=== PATIENT | female | born 1940 | race Caucasian/White ===

== ENCOUNTER 2017-08-18 07:02 | Day surgery (SDC) | payer MEDICARE, OTHER ==
[~2017-08-18 07:02] MED LIST: Acetaminophen/oxyCODONE 325-5 MG Tab PO PRN; Bisacodyl 5 MG Tab PO PRN; EPINEPHrine 1 MG/ML SDV ONE; Ketorolac 15 MG/ML SDV IVPUSH PRN; Lactated Ringers 1,000 ML IV SCH; Lidocaine 1%/Sod Bicarbonate in NS 8.4% 1 ML Syringe IDERM PRN; Magnesium Hydroxide 400 MG/5 ML Susp 30 ML Cup PO PRN; Morphine 4 MG/ML Syringe IVPUSH PRN; Naloxone 0.4 MG/ML SDV IVPUSH PRN; Ropivacaine 0.5% 5 MG/ML 30 ML SDV ONE; Sennosides 8.6 MG Tab PO PRN; Sodium Chloride 0.9% 10 ML Syringe FLUSH PRN
[2017-08-18] MEDS ORDERED: Acetaminophen 1,000 MG/100 ML Infusion Bottle IV SCH (07:05)
[2017-08-18] MEDS ORDERED: Iodine/Sodium Iodide 2% Tincture 30 ML Bottle ONE (07:06)
[2017-08-18] MEDS ORDERED: oxyCODONE ER 10 MG TAB.ER PO SCH (07:06)
[2017-08-18] MEDS ORDERED: ceFAZolin 1 GM Vial ONE ×2 (07:06→07:37)
[2017-08-18] MEDS ORDERED: Bupivacaine 0.75%/D5W 2 ML Amp ONE (07:25)
[2017-08-18] MEDS ORDERED: Morphine PF 10 MG/10 ML SDV ONE (07:25)
[2017-08-18] MEDS ORDERED: Lidocaine 1% 12 ML ONE (07:37)
[2017-08-18] MEDS ORDERED: fentaNYL 100 MCG/2 ML SDV ONE (07:37)
[2017-08-18] MEDS ORDERED: Ondansetron 4 MG/2 ML SDV ONE (07:37)
[2017-08-18] MEDS ORDERED: Lactated Ringers 1,000 ML ONE (07:37)
[2017-08-18] MEDS ORDERED: Midazolam 1 MG/ML 2 ML SDV ONE (07:37)
[2017-08-18] MEDS ORDERED: Ketamine 500 mg/10 ML MDV ONE (07:37)
[2017-08-18] MEDS ORDERED: Propofol 200 MG/20 ML SDV ONE (07:37)
[2017-08-18] MEDS ORDERED: Phenylephrine 1% 10 MG/ML SDV ONE (07:42)
--- NOTE | 2017-08-18 08:00 | PCM.PREANE ---
Preanesthetic Assessment - Anesthesia/Transfusion/Family Hx Anesthesia History: Prior Anesthesia Without Reaction Family History of Anesthesia Reaction: No Transfusion History: No Prior Transfusion(s) Intubation History: Unknown - Review of Systems General: No Symptoms, Fatigue Pulmonary: No Symptoms Cardiovascular: No Symptoms (HTN/questionable silent LA noted per patinet), Lightheadedness (occasionally) Gastrointestinal: No Symptoms (gerd), Diarrhea (IBS) Neurological: No Symptoms Other: Reports: None, Diabetes (BS @ [id number]) - Physical Assessment NPO Status Date: 08/17/17 NPO Status Time: 22:30 Pulse: 79 O2 Sat by Pulse Oximetry: 96 Respiratory Rate: 16 Blood Pressure: 142/63 Temperature: 36.6 C Vital Signs: Last Vital Signs Temp 36.6 C 08/18/17 07:10 Pulse 79 08/18/17 07:10 Resp 16 08/18/17 07:10 BP 142/63 H 08/18/17 07:10 Pulse Ox 96 08/18/17 07:10 Height: 1.52 m Weight: 68.946 kg ASA Class: 2 Mental Status: Alert & Oriented x3 Airway Class: Mallampati = 2 Dentition: Reports: Normal Dentition, Caries Thyro-Mental Finger Breadths: 3 Mouth Opening Finger Breadths: 3 ROM/Head Extension: Full Lungs: Clear to Auscultation, Normal Respiratory Effort Cardiovascular: Regular Rate, Regular Rhythm, No Murmurs - Lab Values: Laboratory Last Values POC Glucose 145 mg/dL (83-110) H 08/18/17 07:21 MRSA (PCR) Negative 08/06/17 12:38 Platelets= 297,000 hgb=13.7 hct=43.1 All other labs reviewed and noted and within acceptable ranges to proceed with scheduled procedure. - Imaging/EKG Impressions: EKG: NSR, inferior Q waves, nonspecific Twave flattening in lead V2. CXR: negative - Allergies Allergies/Adverse Reactions: Allergies Allergy/AdvReac Type Severity Reaction Status Date / Time No Known Allergies Allergy Verified 08/15/17 15:11 - Anesthesia Plan Pre-Op Medication Ordered: None - Acknowledgements Anesthesia Type Planned: Spinal (with right femoral nerve block within the adductor canal under US guidance requested by Dr. Yen.) Pt an Appropriate Candidate for the Planned Anesthesia: Yes Alternatives and Risks of Anesthesia Discussed w Pt/Guardian: Yes Pt/Guardian Understands and Agrees with Anesthesia Plan: Yes PreAnesthesia Questionnaire HEENT History: Reports: Cataract, Other (See Below) Other HEENT History: globus hystericus, wears glasses Cardiovascular History: Reports: High Cholesterol, Hypertension Respiratory History: Reports: None Gastrointestinal History: Reports: GERD, Irritable Bowel Syndrome Genitourinary History: Reports: Urinary Incontinence, Other (See Below) Other Genitourinary History: frequency [employer] MANAGER History: Reports: None Musculoskeletal History: Reports: Other (See Below) Other Musculoskeletal History: leg dysethesia, left joint/knee pain, bunion, capsulitis, RLS Neurological History: Reports: Other (See Below) Other Neuro History: lumbar disc disease Psychiatric History: Reports: Other (See Below) Other Psychiatric History: insomnia, hypersomnia Endocrine/Metabolic History: Reports: Diabetes, Type II Hematologic History: Reports: None Immunologic History: Reports: None Oncologic (Cancer) History: Reports: None Dermatologic History: Reports: Other (See Below) Other Dermatologic History: herpes zoster, actinic keratosis - Past Surgical History Head Surgeries/Procedures: Reports: None HEENT Surgical History: Reports: Cataract Surgery Cardiovascular Surgical History: Reports: None Respiratory Surgical History: Reports: None GI Surgical History: Reports: Colonoscopy, EGD Female Surgical History: Reports: D&C Male Surgical History: Reports: None Endocrine Surgical History: Reports: None Neurological Surgical History: Reports: None Musculoskeletal Surgical History: Reports: None Oncologic Surgical History: Reports: None - SUBSTANCE USE Smoking Status *Q: Never Smoker Recreational Drug Use History: No - HOME MEDS Home Medications: Home Meds Omeprazole 20 mg PO DAILY 06/08/14 [History] Potassium Chloride [Klor-Con 10] 10 meq PO BID 06/08/14 [History] Simvastatin 20 mg PO DAILY 06/08/14 [History] Triamterene/Hydrochlorothiazid [Triamterene-HCTZ 37.5-25 MG] 1 tab PO DAILY [History] rOPINIRole HCl [Requip] 1 mg PO BID 06/08/14 [History] Acetaminophen [Tylenol Extra Strength] 500 mg PO QID PRN 08/15/17 [History] Calcium Carb/D3/Magnesium/Zinc [Jasvir Mag Zinc + D Tablet] 2 tab PO DAILY [History] Cholecalciferol (Vitamin D3) [Vitamin D3] 2,000 units PO DAILY 08/15/17 [History ] Denosumab [Prolia] 1 injection SQ ASDIRECTED 08/15/17 [History] Eluxadoline [Viberzi] 1 - 2 tab PO DAILY 08/15/17 [History] Glimepiride 2 mg PO DAILY 08/15/17 [History] LORazepam 0.5 mg PO DAILY 08/15/17 [History] SitaGLIPtin [Januvia] 100 mg PO DAILY 08/15/17 [History] rOPINIRole [Requip] 2 mg PO BEDTIME 08/15/17 [History] - CURRENT (IN HOUSE) MEDS Current Meds: Current Medications Acetaminophen (Ofirmev) 1,000 mg IV ASDIRECTED [facility] Stop: 08/19/17 07:06 Aspirin (Ecotrin) 325 mg PO BID [facility] Bisacodyl (Dulcolax) 5 mg PO DAILY PRN PRN Reason: Constipation Morphine Sulfate 8 mg/Epinephrine HCl 0.3 mg/Cefuroxime Sodium 750 mg/Ketorolac Tromethamine 30 mg/Sodium Chloride 27.9 ml 0 mg .XX ONETIME ONE Stop: 08/18/17 09:01 Docusate Sodium (Colace) 100 mg PO BID [facility] Famotidine (Pepcid) 20 mg PO Q12H [facility] Lactated Ringer's (Ringers, Lactated) 1,000 mls @ 125 mls/hr IV ASDIRECTED [facility] Last Admin: 08/18/17 07:25 Dose: 125 mls/hr Cefazolin Sodium/Dextrose 2 gm (/ Premix) 50 mls @ 100 mls/hr IV Q8H [facility] Stop: 08/18/17 23:29 Ketorolac Tromethamine (Toradol) 15 mg IVPUSH Q6H PRN PRN Reason: Pain Lidocaine/Sodium Bicarbonate (Buffered Lidocaine 1% In Ns 8.4%) 0.25 ml IDERM ONETIME PRN PRN Reason: Prior to IV Start Stop: 08/18/17 18:00 Last Admin: 08/18/17 07:25 Dose: 0.25 ml Magnesium Hydroxide (Milk Of Magnesia) 30 ml PO BID PRN PRN Reason: Constipation Morphine Sulfate (Morphine) 2 mg IVPUSH Q2H PRN PRN Reason: Breakthrough Pain Naloxone HCl (Narcan) 0.1 mg IVPUSH Q5M PRN PRN Reason: Oversedation Ondansetron HCl (Zofran) 4 mg IVPUSH Q6H PRN PRN Reason: Nausea/Vomiting Oxycodone HCl (Oxycontin) 10 mg PO ONETIME [facility] Oxycodone/Acetaminophen (Percocet 325-5 Mg) 1 - 2 tab PO Q4H PRN PRN Reason: Pain Pregabalin (Lyrica) 50 mg PO DAILY [facility] Senna (Senna) 8.6 mg PO BID PRN PRN Reason: Constipation Sodium Chloride (Saline Flush) 10 ml FLUSH ASDIRECTED PRN PRN Reason: Keep Vein Open Discontinued Medications Bupivacaine HCl (Marcaine 0.25%) Confirm Administered Dose 30 ml .ROUTE .STK- MED ONE Stop: 08/18/17 07:07 Bupivacaine HCl/Dextrose (Marcaine 0.75% Spinal) Confirm Administered Dose 2 ml .ROUTE .STK-MED ONE Stop: 08/18/17 07:26 Cefazolin Sodium (Ancef) Confirm Administered Dose 2 gm .ROUTE .STK-MED ONE Stop: 08/18/17 07:07 Cefazolin Sodium (Ancef) Confirm Administered Dose 2 gm .ROUTE .STK-MED ONE Stop: 08/18/17 07:38 Epinephrine HCl (Adrenalin) Confirm Administered Dose 1 mg .ROUTE .STK-MED ONE Stop: 08/18/17 06:40 Fentanyl (Sublimaze) Confirm Administered Dose 100 mcg .ROUTE .STK-MED ONE Stop: 08/18/17 07:38 Lidocaine HCl (Xylocaine-Mpf 1%) Confirm Administered Dose 12 mls @ as directed .ROUTE .STK-MED ONE Stop: 08/18/17 07:38 Lactated Ringer's (Ringers, Lactated) Confirm Administered Dose 1,000 mls @ as directed .ROUTE .STK-MED ONE Stop: 08/18/17 07:38 Iodine (Iodine 2% Mild Tincture) Confirm Administered Dose 30 ml .ROUTE .STK- MED ONE Stop: 08/18/17 07:07 Ketamine HCl (Ketalar) Confirm Administered Dose 500 mg .ROUTE .STK-MED ONE Stop: 08/18/17 07:38 Midazolam HCl (Versed 1 Mg/Ml) Confirm Administered Dose 2 mg .ROUTE .STK-MED ONE Stop: 08/18/17 07:38 Morphine Sulfate (Duramorph Pf) Confirm Administered Dose 10 mg .ROUTE .STK-MED ONE Stop: 08/18/17 07:26 Ondansetron HCl (Zofran) Confirm Administered Dose 4 mg .ROUTE .STK-MED ONE Stop: 08/18/17 07:38 Phenylephrine HCl (Stewart-Synephrine) Confirm Administered Dose 10 mg .ROUTE .STK- MED ONE Stop: 08/18/17 07:43 Propofol (Diprivan 20 Ml) Confirm Administered Dose 400 mg .ROUTE .STK-MED ONE Stop: 08/18/17 07:38 Ropivacaine (Naropin 0.5%) Confirm Administered Dose 30 ml .ROUTE .STK-MED ONE Stop: 08/18/17 06:40 Tranexamic Acid (Cyklokapron) Confirm Administered Dose 1,000 mg .ROUTE .STK- MED ONE Stop: 08/18/17 07:07 Vancomycin HCl (Vancomycin) Confirm Administered Dose 1 gm .ROUTE .STK-MED ONE Stop: 08/18/17 07:07
[2017-08-18] MEDS: Pregabalin 25 MG Cap PO SCH ×2 (08:07→15:23)
[2017-08-18] MEDS ORDERED: diphenhydrAMINE 50 MG/ML SDV IVPUSH PRN (09:59)
[2017-08-18] MEDS ORDERED: fentaNYL 100 MCG/2 ML SDV IVPUSH PRN (09:59)
[2017-08-18] MEDS ORDERED: Ondansetron 4 MG/2 ML SDV IVPUSH PRN (09:59)
[2017-08-18] MEDS ORDERED: ePHEDrine 50 MG/ML SDV IVPUSH PRN (09:59)
[2017-08-18] MEDS ORDERED: Phenylephrine 1 MG in Sodium Chloride 0.9% 10 ML IV SCH (10:00)
[2017-08-18] MEDS ORDERED: Lidocaine 1% 2 ML ONE (10:00)
[2017-08-18] MEDS: Bupivacaine 0.25% 30 ML SDV ONE ×2 (10:52→10:58)
[2017-08-18] MEDS: Morphine 8 MG, EPINEPHrine 0.3 MG, Cefuroxime 750 MG, Ketorolac 30 MG, Sodium Chloride ... ONE ×15 (10:52→15:21)
[2017-08-18] MEDS: Vancomycin 1 GM SDV ONE ×2 (10:53→11:01)
--- NOTE | 2017-08-18 11:44 | PCM.POSTAN ---
POST ANESTHESIA ASSESSMENT - MENTAL STATUS Mental Status: Alert - VITAL SIGNS Pulse Rate: 81 SaO2: 94 (on 2lpm nasal cannula) Resp Rate: 24 Blood Pressure: 118/60 Temperature: 36.7 C - RESPIRATORY Respiratory Status: Respiratory Rate WNL, Airway Patent, O2 Saturation Stable - CARDIOVASCULAR CV Status: Pulse Rate WNL, Blood Pressure Stable - GASTROINTESTINAL GI Status: No Symptoms - POST OP HYDRATION Hydration Status: Adequate & Stable
--- NOTE | 2017-08-18 12:15 | PCM.SN ---
- Free Text/Narrative Note: Right selective femoral nerve block at the adductor canal for post-procedure pain control under US guidance requested by Dr. Yen. Time Out: 1149 Start: 1150 End: 1202 Chart reviewed. Consent signed. Questions answered. Appropriate monitors applied. Time out performed. Right mid-shaft femur identified with ultrasound, scanning medially of femur, the femoral artery in the adductor canal visualized , and the femoral nerve located laterally to the artery. The skin was prepped lateral to the ultrasound probe with chlorahexadine times two. The 21ga 4 insulated block needle was inserted under direct ultrasound guidance into the adductor canal. 20mL of 0.5% ropivacaine with 1:200,000 epinephrine was injected circumferentially around the nerve with intermittent negative aspiration noted. Patient tolerated the procedure well. Aseptic technique noted along with sterile gloves, mask, and sterile probe cover. See pictures on progress note and vital signs on nurses notes. Block completed in PACU. Lilian Sánchez CRNA
--- NOTE | 2017-08-18 13:04 | CR ---
Right knee: AP and lateral views of the right knee were obtained. Comparison: No prior knee exam. Knee prosthesis is seen. Components are aligned. Soft tissue is noted. Underlying bony structures are intact. Impression: 1. Satisfactory radiographic appearance of recently placed right knee prosthesis. Diagnostic code #2
[2017-08-18] MEDS: Ondansetron 4 MG/2 ML SDV IVPUSH PRN (13:22)
[2017-08-18] MEDS ORDERED: Denosumab 60 MG/1 ML Syringe SCH (13:30)
[2017-08-18] MEDS ORDERED: Scopolamine 1.5 MG Transdermal Patch TRDERM PRN (14:03)
[2017-08-18] MEDS: ceFAZolin 2 GM in Premix Bag 1 BAG IV SCH (14:51)
[2017-08-18] MEDS: rOPINIRole 1 MG Tab PO SCH (14:52)
--- NOTE | 2017-08-18 16:52 | PCM.OPNOTE ---
- General Post-Op/Procedure Note Date of Surgery/Procedure: 08/18/17 Operative Procedure(s): right total knee arthroplasty Pre Op Diagnosis: right knee osteoarthosis Post-Op Diagnosis: Same Anesthesia Technique: Local, MAC, Spinal Primary Surgeon: Deandre Yen Anesthesia Provider: Lilian Sánchez Meter Installer And Remover: Ayala Sorto Meter Installer And Remover: Kae Travis EBL in mLs: 5 Complications: None Condition: Good Free Text/Narrative:: Intake & Output 08/18/17 08/18/17 08/18/17 06:59 14:59 22:59 Intake Total 150 Output Total 500 Balance -350 size 4 29x9 9mm
[2017-08-18] MEDS ORDERED: Metoclopramide 10 MG/2 ML SDV IVPUSH PRN (17:27)
[2017-08-18] MEDS ORDERED: rOPINIRole 1 MG Tab PO SCH (21:00)
[2017-08-18] MEDS ORDERED: Famotidine 20 MG Tab PO SCH (21:00)
[2017-08-18] MEDS: Famotidine 20 MG Tab PO SCH (21:17)
[2017-08-18] MEDS: Docusate Sodium 100 MG Cap PO SCH (21:18)
[2017-08-18] MEDS: Potassium Chloride 10 MEQ Tab.ER PO SCH (21:18)
[2017-08-19] MEDS: ceFAZolin 2 GM in Premix Bag 1 BAG IV SCH ×2 (00:11→06:41)
[2017-08-19] MEDS: Acetaminophen/oxyCODONE 325-5 MG Tab PO PRN ×3 (00:12→11:21)
[2017-08-19] MEDS: rOPINIRole 1 MG Tab PO SCH ×2 (06:13→15:06)
--- NOTE | 2017-08-19 06:19 | PCM.CONS ---
H&P History of Present Illness - General Date of Service: 08/19/17 Admit Problem/Dx: Admission Diagnosis/Problem Admission Diagnosis/Problem Osteoarthritis of knee Source of Information: Patient, Old Records, Provider, RN, RN Notes Reviewed History Limitations: Reports: No Limitations - History of Present Illness Initial Comments - Free Text/Narative: Malena Khalil is a 77 yo [address] patient of Dr. Yen who is post-operative day 1 of right TKA. Hospital medicine was consulted for post-operative medical care. At this time she is resting comfortably in bed. Pain is controlled. She denies any chest pain, shortness of breath, palpitations, or vomiting. She does report some nausea with walking long distances. She carries a history of: HLD, HTN, GERD, IBS, urinay incontinence, RLS, insomnia, Type II DM, lumbar disk disease. She was never a smoker. She is a full code. Her primary care provider is Dr. Vincent Saldivar in [place]. Right Knee Pain Score (Numeric/FACES): 2 - Related Data Allergies/Adverse Reactions: Allergies Allergy/AdvReac Type Severity Reaction Status Date / Time No Known Allergies Allergy Verified 08/15/17 15:11 Home Medications: Home Meds Omeprazole 20 mg PO DAILY 06/08/14 [History] Potassium Chloride [Klor-Con 10] 10 meq PO BID 06/08/14 [History] Simvastatin 20 mg PO DAILY 06/08/14 [History] Triamterene/Hydrochlorothiazid [Triamterene-HCTZ 37.5-25 MG] 1 tab PO DAILY [History] rOPINIRole HCl [Requip] 1 mg PO BID 06/08/14 [History] Acetaminophen [Tylenol Extra Strength] 500 mg PO QID PRN 08/15/17 [History] Calcium Carb/D3/Magnesium/Zinc [Jasvir Mag Zinc + D Tablet] 2 tab PO DAILY [History] Cholecalciferol (Vitamin D3) [Vitamin D3] 2,000 units PO DAILY 08/15/17 [History ] Denosumab [Prolia] 1 injection SQ ASDIRECTED 08/15/17 [History] Eluxadoline [Viberzi] 1 - 2 tab PO DAILY 08/15/17 [History] Glimepiride 2 mg PO DAILY 08/15/17 [History] LORazepam 0.5 mg PO DAILY 08/15/17 [History] SitaGLIPtin [Januvia] 100 mg PO DAILY 08/15/17 [History] rOPINIRole [Requip] 2 mg PO BEDTIME 08/15/17 [History] Past Medical History HEENT History: Reports: Cataract, Other (See Below) Other HEENT History: globus hystericus, wears glasses Cardiovascular History: Reports: High Cholesterol, Hypertension Respiratory History: Reports: None Gastrointestinal History: Reports: GERD, Irritable Bowel Syndrome Genitourinary History: Reports: Urinary Incontinence, Other (See Below) Other Genitourinary History: frequency [employer] 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 History: Reports: None Musculoskeletal History: Reports: Other (See Below) Other Musculoskeletal History: leg dysethesia, left joint/knee pain, bunion, capsulitis, RLS Neurological History: Reports: Other (See Below) Other Neuro History: lumbar disc disease Psychiatric History: Reports: Other (See Below) Other Psychiatric History: insomnia, hypersomnia Endocrine/Metabolic History: Reports: Diabetes, Type II Hematologic History: Reports: None Immunologic History: Reports: None Oncologic (Cancer) History: Reports: None Dermatologic History: Reports: Other (See Below) Other Dermatologic History: herpes zoster, actinic keratosis - Past Surgical History Head Surgeries/Procedures: Reports: None HEENT Surgical History: Reports: Cataract Surgery Cardiovascular Surgical History: Reports: None Respiratory Surgical History: Reports: None GI Surgical History: Reports: Colonoscopy, EGD Female Surgical History: Reports: D&C Endocrine Surgical History: Reports: None Neurological Surgical History: Reports: None Musculoskeletal Surgical History: Reports: None Oncologic Surgical History: Reports: None Social & Family History - Tobacco Use Smoking Status *Q: Never Smoker - Caffeine Use Caffeine Use: Reports: Coffee, Soda - Recreational Drug Use Recreational Drug Use: No Drug Use in Last 12 Months: No H&P Review of Systems - Review of Systems: Review Of Systems: See Below General: Reports: No Symptoms HEENT: Reports: No Symptoms Pulmonary: Reports: No Symptoms Cardiovascular: Reports: No Symptoms Gastrointestinal: Reports: No Symptoms. Denies: Abdominal Pain, Constipation, Diarrhea, Nausea, Vomiting Genitourinary: Reports: No Symptoms Musculoskeletal: Reports: Leg Pain, Joint Pain Skin: Reports: No Symptoms Psychiatric: Reports: No Symptoms Neurological: Reports: No Symptoms Hematologic/Lymphatic: Reports: No Symptoms Immunologic: Reports: No Symptoms Exam - Exam Exam: See Below - Vital Signs Vital Signs: Last Vital Signs Temp 98.6 F 08/19/17 04:47 Pulse 88 08/19/17 00:14 Resp 14 08/19/17 04:47 BP 127/62 08/19/17 04:47 Pulse Ox 95 08/19/17 00:14 Weight: 152 lb - Exam Quality Assessment: DVT Prophylaxis General: Alert, Oriented, Cooperative. No: Mild Distress HEENT: Conjunctiva Clear, EACs Clear, EOMI, Hearing Intact, Mucosa Moist & [place] , Nares Patent, Posterior Pharynx Clear, PERRLA Neck: Supple, Trachea Midline Lungs: Clear to Auscultation, Normal Respiratory Effort Cardiovascular: Regular Rate, Regular Rhythm GI/Abdominal Exam: Normal Bowel Sounds, Soft, Non-Tender, No Organomegaly, No Distention, No Abnormal Bruit, No Mass, Pelvis Stable (Female) Exam: Deferred Rectal (Female) Exam: Deferred Back Exam: Normal Inspection, Full Range of Motion Extremities: No Pedal Edema, Normal Capillary Refill, Leg Pain, Limited Range of Motion, Other (CHAPARRO bandage in place on right knee. Bandage is dry and intact. Cooling pack in place. ) Peripheral Pulses: 2+: Radial (L), Radial (R), Posterior Tibial (L), Posterior Tibial (R), Dorsalis Pedis (L), Dorsalis Pedis (R) Skin: Warm, Dry, Intact Neurological: Cranial Nerves Intact (grossly) Neuro Extensive - Mental Status: Alert, Oriented x3, Normal Mood/Affect, Normal Cognition, Memory Intact Psychiatric: Alert, Normal Affect, Normal Mood - Patient Data Lab Results Last 24 hrs: Laboratory Results - last 24 hr 08/18/17 08/18/17 08/18/17 Range/Units 07:21 07:25 12:32 PT 10.7 (8.0-13.0) SECONDS INR 1.00 APTT 28 (22-36) SECONDS POC Glucose 145 H 129 H (83-110) mg/dL 08/18/17 Range/Units 17:22 PT (8.0-13.0) SECONDS INR APTT (22-36) SECONDS POC Glucose 200 H (83-110) mg/dL Result Diagrams: 08/19/17 05:39 08/19/17 05:39 Consult PN Assessment/Plan POD#: 1 Procedures: Procedures CATARACT SURG W/IOL 1 STAGE (06/09/14) COMPLETE CBC W/AUTO DIFF WBC (05/26/17) COMPREHEN METABOLIC PANEL (05/26/17) GLYCOSYLATED HEMOGLOBIN TEST (06/25/17) ROUTINE VENIPUNCTURE (06/25/17) (1) S/P total knee arthroplasty SNOMED Code(s): 6408038614216, 439439731, 3424591962513 Code(s): Z96.659 - PRESENCE OF UNSPECIFIED ARTIFICIAL KNEE JOINT Priority: High Current Visit: Yes Qualifiers: Laterality: right Qualified Code(s): Z96.651 - Presence of right artificial knee joint (2) Osteoarthritis SNOMED Code(s): 454503041 Code(s): M19.90 - UNSPECIFIED OSTEOARTHRITIS, UNSPECIFIED SITE Priority: High Current Visit: Yes Qualifiers: Osteoarthritis location: knee Osteoarthritis type: primary Laterality: right Qualified Code(s): M17.11 - Unilateral primary osteoarthritis, right knee (3) HLD (hyperlipidemia) SNOMED Code(s): 73792921 Code(s): E78.5 - HYPERLIPIDEMIA, UNSPECIFIED Priority: Low Current Visit : No Qualifiers: Hyperlipidemia type: unspecified Qualified Code(s): E78.5 - Hyperlipidemia , unspecified (4) HTN (hypertension) SNOMED Code(s): 55997247 Code(s): I10 - ESSENTIAL (PRIMARY) HYPERTENSION Priority: Low Current Visit: No Qualifiers: Hypertension type: unspecified Qualified Code(s): I10 - Essential (primary ) hypertension (5) GERD (gastroesophageal reflux disease) SNOMED Code(s): 919537023 Code(s): K21.9 - GASTRO-ESOPHAGEAL REFLUX DISEASE WITHOUT ESOPHAGITIS Priority: Low Current Visit: No Qualifiers: Esophagitis presence: esophagitis presence not specified Qualified Code(s) : K21.9 - Gastro-esophageal reflux disease without esophagitis (6) IBS (irritable bowel syndrome) SNOMED Code(s): 88958628 Code(s): K58.9 - IRRITABLE BOWEL SYNDROME WITHOUT DIARRHEA Priority: Low Current Visit: No Qualifiers: Irritable bowel syndrome type: unspecified Qualified Code(s): K58.9 - Irritable bowel syndrome without diarrhea (7) Urinary incontinence SNOMED Code(s): 501197468 Code(s): R32 - UNSPECIFIED URINARY INCONTINENCE Priority: Low Current Visit: No Qualifiers: Urinary Incontinence type: unspecified incontinence Qualified Code(s): R32 - Unspecified urinary incontinence (8) Restless leg SNOMED Code(s): 82865051 Code(s): G25.81 - RESTLESS LEGS SYNDROME Priority: Low Current Visit: No (9) Lumbar disc disease SNOMED Code(s): 335189399 Code(s): M51.9 - UNSP THORACIC, THORACOLUM AND LUMBOSACR INTVRT DISC DISORDER Priority: Low Current Visit: No (10) Insomnia SNOMED Code(s): 235102452 Code(s): G47.00 - INSOMNIA, UNSPECIFIED Priority: Low Current Visit: No Qualifiers: Insomnia type: unspecified Qualified Code(s): G47.00 - Insomnia, unspecified (11) Type II diabetes mellitus SNOMED Code(s): 68465901 Code(s): E11.9 - TYPE 2 DIABETES MELLITUS WITHOUT COMPLICATIONS Priority: Medium Current Visit: Yes Qualifiers: Diabetes mellitus senior living insulin use: unspecified senior living insulin use status Diabetes mellitus complication status: with unspecified complications Qualified Code(s): E11.8 - Type 2 diabetes mellitus with unspecified complications Problem List Initiated/Reviewed/Updated: Yes My Orders Last 24 Hours: My Active Orders 08/18/17 14:03 Scopolamine [Transderm-Scop] 1.5 mg TRDERM Q72H PRN Plan: I/P: Acute: S/P right total knee arthroplasty - post-operative day 1 -DVT prophylaxis and pain management per primary care team -PT/OT -IS/RT -Monitor oxygen saturation -Titrate oxygen as needed -Vital signs stable -Monitor labs -Pre-operative Hgb was 13, now 11.8 Osteoarthritis of right knee -Pain management per primary care team Chronic: HLD HTN GERD IBS urinay incontinence RLS insomnia Type II DM lumbar disk disease Plan: CM for discharge planning GI prophylaxis Home medications as indicated Other orders as listed above Routine AM labs She is a full code. Her PCP is Dr. Vincent Saldivar in [place] She has had some minor nausea with ambulation today which has resolved. Suggested zofran PRN for discharge. Otherwise she has been doing quite well. She did well with PT/OT today. From a hospitalist standpoint she is clear for discharge pending primary team approval. Thank you for allowing us to participate in the care of this patient!! Requesting Provider: Dr. Yen Date Consult Requested: 08/18/17 Reason for Consult: Post-operative medical care Patient History Reviewed: Yes Admission H&P Reviewed: Yes Time Spent (in minutes): 30
[2017-08-19] MEDS ORDERED: GLIMEPIRIDE 1 MG PO SCH (07:00)
[2017-08-19] MEDS ORDERED: Pantoprazole 40 MG Tab.CR PO SCH (07:00)
--- NOTE | 2017-08-19 08:06 | PCM48HPAN ---
Post Anesthesia Note - EVALUATION WITHIN 48HRS OF ANESTHETIC Vital Signs in Normal Range: Yes Patient Participated in Evaluation: Yes Respiratory Function Stable: Yes Airway Patent: Yes Cardiovascular Function Stable: Yes Hydration Status Stable: Yes Pain Control Satisfactory: Yes Nausea and Vomiting Control Satisfactory: No Mental Status Recovered: Yes - COMMENTS/OBSERVATIONS Free Text/Narrative:: Malena is rating her pain at a 2. She is very happy with her pain control. She was very nauseated last evening. She feels better this morning and is ordering her breakfast.
[2017-08-19] MEDS ORDERED: Multivitamins,Therapeutic Tab PO SCH (09:00)
[2017-08-19] MEDS ORDERED: Aspirin 325 MG Tab.EC PO SCH (09:00)
[2017-08-19] MEDS ORDERED: Simvastatin 20 MG Tab PO SCH (09:00)
[2017-08-19] MEDS ORDERED: LORazepam 0.5 MG Tab PO SCH (09:00)
[2017-08-19] MEDS ORDERED: Cholecalciferol (Vitamin D3) 1,000 Unit Tab PO SCH (09:00)
[2017-08-19] MEDS ORDERED: Hydrochlorothiazide/Triamterene 25-37.5 MG Cap PO SCH (09:00)
[2017-08-19] MEDS ORDERED: ELUXADOLINE PO SCH (09:00)
[2017-08-19] MEDS: Potassium Chloride 10 MEQ Tab.ER PO SCH (09:58)
[2017-08-19] MEDS: Docusate Sodium 100 MG Cap PO SCH (10:05)
[2017-08-19] MEDS: Famotidine 20 MG Tab PO SCH (10:54)
[2017-08-19] MEDS: Ondansetron 4 MG/2 ML SDV IVPUSH PRN (11:18)
[2017-08-19 11:58] VITALS: BP 133/56
[2017-08-19] MEDS ORDERED: Glimepiride 2 MG Tab PO ONE (18:19)
--- NOTE | 2017-08-19 23:13 | PCM.SURGPN ---
- General Info Date of Service: 08/19/17 POD#: 1 Functional Status: Reports: Pain Controlled, Tolerating Diet, Ambulating, Urinating, Incentive Spirometry - Review of Systems Musculoskeletal: Reports: Other (The pt's family state they are willing and able to assist pt at home.) - Patient Data Vitals - Most Recent: Last Vital Signs Temp 99.0 F 08/19/17 11:40 Pulse 89 08/19/17 11:40 Resp 22 H 08/19/17 11:40 BP 133/56 L 08/19/17 11:40 Pulse Ox 92 L 08/19/17 11:40 Weight - Most Recent: 152 lb I&O - Last 24 Hours: Intake & Output 08/19/17 08/19/17 08/20/17 14:59 22:59 06:59 Intake Total 180 Balance 180 Lab Results Last 24 Hrs: Laboratory Results - last 24 hr 08/18/17 08/19/17 08/19/17 Range/Units 12:32 05:39 05:39 WBC 10.29 H (3.98-10.04) K/mm3 RBC 4.09 (3.98-5.22) M/mm3 Hgb 11.8 (11.2-15.7) gm/L Hct 36.6 (34.1-44.9) % MCV 89.5 (79.4-94.8) fl MCH 28.9 (25.6-32.2) pg MCHC 32.2 (32.2-35.5) g/dl RDW Std Deviation 41.7 (36.4-46.3) fL Plt Count 293 (182-369) K/mm3 MPV 9.4 (9.4-12.3) fl Sodium 143 (136-145) mEq/L Potassium 3.9 (3.5-5.1) mEq/L Chloride 106 (98-107) mEq/L Carbon Dioxide 28 (21-32) mEq/L Anion Gap 12.9 (5-15) BUN 25 H (7-18) mg/dL Creatinine 0.9 (0.55-1.02) mg/dL Est Cr Clr Drug Dosing 37.60 mL/min Estimated GFR (MDRD) > 60 (>60) mL/min BUN/Creatinine Ratio 27.8 H (14-18) Glucose 149 H (83-115) mg/dL POC Glucose 129 H (83-110) mg/dL Calcium 9.0 (8.5-10.1) mg/dL Total Bilirubin 0.4 (0.2-1.0) mg/dL AST 20 (15-37) U/L ALT 20 (14-59) U/L Alkaline Phosphatase 43 L (46-116) U/L Total Protein 6.3 L (6.4-8.2) g/dl Albumin 3.3 L (3.4-5.0) g/dl Globulin 3.0 gm/dL Albumin/Globulin Ratio 1.1 (1-2) 08/19/17 08/19/17 Range/Units 06:40 11:35 WBC (3.98-10.04) K/mm3 RBC (3.98-5.22) M/mm3 Hgb (11.2-15.7) gm/L Hct (34.1-44.9) % MCV (79.4-94.8) fl MCH (25.6-32.2) pg MCHC (32.2-35.5) g/dl RDW Std Deviation (36.4-46.3) fL Plt Count (182-369) K/mm3 MPV (9.4-12.3) fl Sodium (136-145) mEq/L Potassium (3.5-5.1) mEq/L Chloride (98-107) mEq/L Carbon Dioxide (21-32) mEq/L Anion Gap (5-15) BUN (7-18) mg/dL Creatinine (0.55-1.02) mg/dL Est Cr Clr Drug Dosing mL/min Estimated GFR (MDRD) (>60) mL/min BUN/Creatinine Ratio (14-18) Glucose (83-115) mg/dL POC Glucose 160 H 253 H (83-110) mg/dL Calcium (8.5-10.1) mg/dL Total Bilirubin (0.2-1.0) mg/dL AST (15-37) U/L ALT (14-59) U/L Alkaline Phosphatase (46-116) U/L Total Protein (6.4-8.2) g/dl Albumin (3.4-5.0) g/dl Globulin gm/dL Albumin/Globulin Ratio (1-2) Med Orders - Current: Current Medications Discontinued Medications Acetaminophen (Ofirmev) 1,000 mg IV ASDIRECTED [facility] Stop: 08/19/17 07:06 Last Admin: 08/18/17 08:08 Dose: 1,000 mg Aspirin (Ecotrin) 325 mg PO BID [facility] Last Admin: 08/19/17 09:57 Dose: 325 mg Bisacodyl (Dulcolax) 5 mg PO DAILY PRN PRN Reason: Constipation Bupivacaine HCl (Marcaine 0.25%) Confirm Administered Dose 30 ml .ROUTE .STK- MED ONE Stop: 08/18/17 07:07 Last Admin: 08/18/17 10:58 Dose: 30 ml Bupivacaine HCl/Dextrose (Marcaine 0.75% Spinal) Confirm Administered Dose 2 ml .ROUTE .STK-MED ONE Stop: 08/18/17 07:26 Cefazolin Sodium (Ancef) Confirm Administered Dose 2 gm .ROUTE .STK-MED ONE Stop: 08/18/17 07:07 Last Admin: 08/18/17 10:41 Dose: 2 gm Cefazolin Sodium (Ancef) Confirm Administered Dose 2 gm .ROUTE .STK-MED ONE Stop: 08/18/17 07:38 Cholecalciferol (Vitamin D3) 2,000 units PO DAILY [facility] Last Admin: 08/19/17 09:57 Dose: 2,000 units Morphine Sulfate 8 mg/Epinephrine HCl 0.3 mg/Cefuroxime Sodium 750 mg/Ketorolac Tromethamine 30 mg/Sodium Chloride 27.9 ml 0 mg .XX ONETIME ONE Stop: 08/18/17 09:01 Last Admin: 08/18/17 15:21 Dose: Not Given Denosumab (Prolia) mg .XX ASDIRECTED [facility] Diphenhydramine HCl (Benadryl) 25 mg IVPUSH Q6H PRN PRN Reason: pruritis Stop: 08/18/17 12:00 Docusate Sodium (Colace) 100 mg PO BID [facility] Last Admin: 08/19/17 10:05 Dose: Not Given Ephedrine Sulfate (Ephedrine Sulfate) 5 mg IVPUSH ASDIRECTED PRN PRN Reason: Hypotension Stop: 08/18/17 12:00 Epinephrine HCl (Adrenalin) Confirm Administered Dose 1 mg .ROUTE .STK-MED ONE Stop: 08/18/17 06:40 Famotidine (Pepcid) 20 mg PO Q12H [facility] Famotidine (Pepcid) 20 mg PO BID [facility] Last Admin: 08/19/17 10:54 Dose: Not Given Fentanyl (Sublimaze) Confirm Administered Dose 100 mcg .ROUTE .STK-MED ONE Stop: 08/18/17 07:38 Fentanyl (Sublimaze) 50 mcg IVPUSH Q5M PRN PRN Reason: Pain Stop: 08/18/17 12:00 Glimepiride (Amaryl) 2 mg PO ONETIME ONE Stop: 08/19/17 18:20 Lactated Ringer's (Ringers, Lactated) 1,000 mls @ 125 mls/hr IV ASDIRECTED [facility] Last Admin: 08/18/17 07:25 Dose: 125 mls/hr Cefazolin Sodium/Dextrose 2 gm (/ Premix) 50 mls @ 100 mls/hr IV Q8H [facility] Stop: 08/19/17 07:59 Last Admin: 08/19/17 06:41 Dose: 100 mls/hr Lidocaine HCl (Xylocaine-Mpf 1%) Confirm Administered Dose 12 mls @ as directed .ROUTE .STK-MED ONE Stop: 08/18/17 07:38 Lactated Ringer's (Ringers, Lactated) Confirm Administered Dose 1,000 mls @ as directed .ROUTE .STK-MED ONE Stop: 08/18/17 07:38 Lidocaine HCl (Xylocaine-Mpf 1%) Confirm Administered Dose 2 mls @ as directed .ROUTE .STK-MED ONE Stop: 08/18/17 10:01 Phenylephrine HCl 1 mg/ Sodium (Chloride) 10.1 mls @ 1 mls/sec IV TITRATE [facility]; Protocol Stop: 08/18/17 12:00 Iodine (Iodine 2% Mild Tincture) Confirm Administered Dose 30 ml .ROUTE .STK- MED ONE Stop: 08/18/17 07:07 Last Admin: 08/18/17 10:51 Dose: 18 ml Ketamine HCl (Ketalar) Confirm Administered Dose 500 mg .ROUTE .STK-MED ONE Stop: 08/18/17 07:38 Ketorolac Tromethamine (Toradol) 15 mg IVPUSH Q6H PRN PRN Reason: Pain Last Admin: 08/18/17 18:36 Dose: 15 mg Lidocaine/Sodium Bicarbonate (Buffered Lidocaine 1% In Ns 8.4%) 0.25 ml IDERM ONETIME PRN PRN Reason: Prior to IV Start Stop: 08/18/17 18:00 Last Admin: 08/18/17 07:25 Dose: 0.25 ml Lorazepam (Ativan) 0.5 mg PO DAILY [facility] Last Admin: 08/19/17 09:57 Dose: 0.5 mg Magnesium Hydroxide (Milk Of Magnesia) 30 ml PO BID PRN PRN Reason: Constipation Metoclopramide HCl (Reglan) 10 mg IVPUSH Q6H PRN PRN Reason: Nausea/Vomiting Last Admin: 08/18/17 17:52 Dose: 10 mg Midazolam HCl (Versed 1 Mg/Ml) Confirm Administered Dose 2 mg .ROUTE .STK-MED ONE Stop: 08/18/17 07:38 Morphine Sulfate (Morphine) 2 mg IVPUSH Q2H PRN PRN Reason: Breakthrough Pain Morphine Sulfate (Duramorph Pf) Confirm Administered Dose 10 mg .ROUTE .STK-MED ONE Stop: 08/18/17 07:26 Multivitamins (Thera) 1 each PO DAILY [facility] Last Admin: 08/19/17 09:57 Dose: 1 each Naloxone HCl (Narcan) 0.1 mg IVPUSH Q5M PRN PRN Reason: Oversedation Glimepiride 1mg Pt (Own) 2 each PO WITHBREAKFAST [facility] Last Admin: 08/19/17 06:15 Dose: 1 each Ondansetron HCl (Zofran) 4 mg IVPUSH Q6H PRN PRN Reason: Nausea/Vomiting Last Admin: 08/19/17 11:18 Dose: 4 mg Ondansetron HCl (Zofran) Confirm Administered Dose 4 mg .ROUTE .STK-MED ONE Stop: 08/18/17 07:38 Ondansetron HCl (Zofran) 4 mg IVPUSH ONETIME PRN PRN Reason: Nausea/Vomiting Stop: 08/18/17 12:00 Oxycodone HCl (Oxycontin) 10 mg PO ONETIME [facility] Last Admin: 08/18/17 08:08 Dose: 10 mg Oxycodone/Acetaminophen (Percocet 325-5 Mg) 1 - 2 tab PO Q4H PRN PRN Reason: Pain Oxycodone/Acetaminophen (Percocet 325-5 Mg) 1 - 2 tab PO Q4H PRN PRN Reason: Pain Last Admin: 08/19/17 11:21 Dose: 2 tab Pantoprazole Sodium (Protonix) 40 mg PO DAILY@0700 [facility] Last Admin: 08/19/17 06:13 Dose: 40 mg Eluxadoline [Viberzi (] TabsPt Own) 1 - 2 each PO DAILY [facility] Last Admin: 08/19/17 10:00 Dose: 1 each Phenylephrine HCl (Stewart-Synephrine) Confirm Administered Dose 10 mg .ROUTE .STK- MED ONE Stop: 08/18/17 07:43 Potassium Chloride (Klor-Con 10) 10 meq PO BID [facility] Last Admin: 08/19/17 09:58 Dose: 10 meq Pregabalin (Lyrica) 50 mg PO DAILY [facility] Last Admin: 08/18/17 15:23 Dose: Not Given Propofol (Diprivan 20 Ml) Confirm Administered Dose 400 mg .ROUTE .STK-MED ONE Stop: 08/18/17 07:38 Ropinirole HCl (Requip) 2 mg PO BEDTIME [facility] Last Admin: 08/18/17 21:17 Dose: 2 mg Ropinirole HCl (Requip) 1 mg PO BID@0700,1500 [facility] Last Admin: 08/19/17 15:06 Dose: 1 mg Ropivacaine (Naropin 0.5%) Confirm Administered Dose 30 ml .ROUTE .STK-MED ONE Stop: 08/18/17 06:40 Scopolamine (Transderm-Scop) 1.5 mg TRDERM Q72H PRN PRN Reason: dizziness Last Admin: 08/18/17 14:52 Dose: 1.5 mg Senna (Senna) 8.6 mg PO BID PRN PRN Reason: Constipation Simvastatin (Zocor) 20 mg PO DAILY [facility] Last Admin: 08/19/17 09:58 Dose: 20 mg Sodium Chloride (Saline Flush) 10 ml FLUSH ASDIRECTED PRN PRN Reason: Keep Vein Open Tranexamic Acid (Cyklokapron) Confirm Administered Dose 1,000 mg .ROUTE .STK- MED ONE Stop: 08/18/17 07:07 Last Admin: 08/18/17 10:53 Dose: 1,000 mg Triamterene/HCTZ (Dyazide 25-37.5 Mg) 1 each PO DAILY [facility] Last Admin: 08/19/17 09:58 Dose: 1 each Vancomycin HCl (Vancomycin) Confirm Administered Dose 1 gm .ROUTE .STK-MED ONE Stop: 08/18/17 07:07 Last Admin: 08/18/17 11:01 Dose: 1 gm - Exam Wound/Incisions: Dressing Dry and Intact General: Alert, Cooperative, No Acute Distress Lungs: Normal Respiratory Effort Extremities: Other (NVS intact for BLE. Lisa's negative.) - Problem List Review Problem List Initiated/Reviewed/Updated: Yes - My Orders Last 24 Hours: Active Orders 24 hr Category Date Time Status Ready for Discharge [RC] PER UNIT ROUTINE Care 08/19/17 16:44 Active - Assessment Assessment (Free Text/Narrative):: POD#1 - s/p right TKA - Plan Plan (Free Text/Narrative):: 1. Discharge to home today. 2. The pt met inpatient therapy goals. 3. Discussed use of pain medication and precautions with medication, as well as need for close blood sugar monitoring post-op with pt and family. 4. Hgb 11.8 today. 5. Outpatient therapy. The pt's case was discussed with Dr. Yen today.
--- NOTE | 2017-08-21 07:42 | OR ---
DATE OF OPERATION: 08/18/2017 SURGEON: Deandre Yen MD OPERATION PERFORMED: Right total knee arthroplasty. PREOPERATIVE DIAGNOSIS: Right knee osteoarthrosis. POSTOPERATIVE DIAGNOSIS: Right knee osteoarthrosis. ANESTHESIA: Local MAC with spinal. ANESTHESIA PROVIDER: Lilian Sánchez CRNA HYDRAULIC PLUMBER: Ayala Sorto PA-C and Kae Travis LPN. ESTIMATED BLOOD LOSS: 5 mL COMPLICATIONS: None. CONDITION: Stable. IMPLANTS: 1. [place] size 4 PS femur. 2. [place] size 4 [place] tibial base plate. 3. [place] size 29 x 9 mm patella. 4. [place] size 9 mm PS X3 polyethylene insert. DESCRIPTION OF PROCEDURE: The patient was identified in the preop holding area. Proper site was marked and identified by the surgeon. The patient was taken back to the operating theater. After adequate anesthesia, the patient's right lower extremity had a nonsterile tourniquet applied and it was then sterilely prepped and draped in the usual sterile fashion. OR timeout was performed. The patient received 2 g IV Ancef. At this time, right lower extremity was exsanguinated. Tourniquet was insufflated to 300 mmHg. Standard medial parapatellar incision was made. Medial parapatellar arthrotomy was created. Deep fibers of the MCL were raised and anterior fat pad was resected. At this time, attention was turned to the patella. Patella measured a 21, it was resected to a 13 for a 29 x 9 mm patella. Drill holes were then drilled and found to be in adequate position. The drill was then drilled in the distal femur and the intramedullary distal femoral cutting guide was then placed. 8 mm was resected off the distal femur and was found to be an adequate resection. Sizing guide was placed. It was found to be a size 4 PS femur that was shown on the implant record at the beginning of this dictation. The drill holes were drilled for the epicondylar axis using [place] line and epicondyles as reference. At this time, the 4-in- 1 cutting block was placed. An anterior posterior and anterior and posterior chamfer cuts were then completed. The correct size box cut was then placed and the box cut was completed and found to be an adequate resection. Attention was turned to the tibia. The posterior medial lateral retractors were placed. The extramedullary tibial guide was placed. It was placed in the old footprint of the ACL. It was aligned with the center of the ankle and 0 degrees of slope, 9 mm was then resected off the unaffected lateral side. There was found to be an acceptable reduction. At this time, posterior osteophytes were removed along with medial and lateral meniscus. A trial implant was placed with a correct sized tibia that was mentioned at the beginning of the dictation. A size 9 mm PS X3 polyethylene was then placed. The patient's knee was brought through range of motion. The patella was tracking centrally and was stable to varus and valgus stress. Alignment was found to be roughly at 0 degrees. At this time, cement was mixed on the back table. The tibia was stamped and drilled in proper rotation. All cut surfaces were irrigated with pulse lavage irrigation with Ancef and then completely dried. Once this was completed, then the cement was ready. The universal tibial base plate was cemented in place. Next, the size 4 PS femur cemented into place and the size 9 mm PS X3 polyethylene was placed. The patient's knee was brought into full extension. Excess cement was removed. The patella was then cemented in place at this time. Tourniquet was deflated. One liter dilute Betadine solution was irrigated through the knee along with 3 L of pulse lavage irrigation with Ancef. Periarticular injection was then completed. The patient's knee was brought through a range of motion. Once the cement had time to set up and it was found to be stable to varus valgus stress, the patella was tracking centrally with full range of motion. At this time, a #2 barbed suture was used for closure of the medial parapatellar arthrotomy. Topical tranexamic acid was placed. 2-0 Vicryl was used subcutaneously, a running 3-0 Monocryl was used subcuticularly. The patient tolerated the procedure well and was sent to the PACU in stable condition. MMDELANEY /[id number]
--- NOTE | 2017-08-25 15:04 | PCM.DCSUM1 ---
Discharge Summary - Hospital Course Brief History: Malena is a 77 yo female who underwent right TKA with Dr. Yen on 08-18-2017. The procedure was completed under spinal anesthesia with sedation. The pt tolerated the procedure well and was admitted to the Medical-Surgical Unit. Medical management was provided by the Hospitalist service. The pt's Hospital course was uneventful. The pt's Hgb on POD#1 was 11.8. On POD#1, 325mg ASA BID was initiated for VTE prophylaxis. SCDs and TEDs were also ordered. A Mepilex dressing was placed at the incision site at the time of surgery and remained clean and dry. The pt participated in P.T. and O.T. and met inpatient therapy goals. The pt was allowed to WBAT. On POD#1, the pt was deemed appropriate to discharge to home with her family. - Discharge Data Discharge Date: 08/19/17 Discharge Disposition: Home, Self-Care 01 Condition: Good - Patient Summary/Data Operative Procedure(s) Performed: right total knee arthroplasty Consults: Consultations 08/18/17 06:47 Consult to Physician [CONS] Routine OT Evaluation and Treatment [CONS] Routine PT Evaluation and Treatment [CONS] Routine - Patient Instructions Diet: Usual Diet as Tolerated Activity: Apply Ice, As Tolerated, Elevate Extremity, Full Weight Bearing Driving: Do Not Drive Showering/Bathing: May Shower Wound/Incision Care: Keep Operative Site/Wound Site Clean and Dry, Do NOT Change Dressing Notify Provider of: Fever, Increased Pain, Swelling and Redness, Drainage, Nausea and/or Vomiting Other/Special Instructions: Please get up and moving around every hour while awake. This helps to prevent blood clots. Please use your walker and have help as needed. Take a 325mg ASPIRIN TWICE DAILY. This also helps to prevent blood clots. The aspirin is being used for blood clot prevention and not for pain management, so please do not miss a dose of the medication. Do the exercises you were taught in the Hospital. Schedule for P.T. Use the pain medication as needed. The medication may cause drowsiness and constipation. Contact your primary care provider for instructions if you are constipated. You may use a stool softener like docusate sodium or Colace 100mg twice daily and/or a laxative like Miralax daily for constipation. Use the ice machine often. Elevate the limb to decrease swelling. Keep the Mepilex dressing in place until follow-up at the Clinic. Notify the Clinic if the dressing is saturated. Wear the MARTINA hose during the day and you may remove these at night. Eat a diet high in protein as this well help with healing. Schedule an appointment with your primary care provider for 'routine post-op care'. Call the Clinic with questions or concerns - [phone]. - Discharge Plan Prescriptions/Med Rec: Acetaminophen/oxyCODONE [Percocet 325-5 MG] 1 - 2 tab PO Q6H PRN #60 tablet PRN Reason: Pain Aspirin [Ecotrin] 325 mg PO BID #84 tab.ec Ondansetron [Zofran ODT] 4 mg PO Q6H PRN #20 tab.dis PRN Reason: Nausea Home Medications: Home Meds Omeprazole 20 mg PO DAILY 06/08/14 [History] Potassium Chloride [Klor-Con 10] 10 meq PO BID 06/08/14 [History] Simvastatin 20 mg PO DAILY 06/08/14 [History] Triamterene/Hydrochlorothiazid [Triamterene-HCTZ 37.5-25 MG] 1 tab PO DAILY [History] rOPINIRole HCl [Requip] 1 mg PO BID 06/08/14 [History] Calcium Carb/D3/Magnesium/Zinc [Jasvir Mag Zinc + D Tablet] 2 tab PO DAILY [History] Cholecalciferol (Vitamin D3) [Vitamin D3] 2,000 units PO DAILY 08/15/17 [History ] Denosumab [Prolia] 1 injection SQ ASDIRECTED 08/15/17 [History] Eluxadoline [Viberzi] 1 - 2 tab PO DAILY 08/15/17 [History] Glimepiride 2 mg PO DAILY 08/15/17 [History] LORazepam 0.5 mg PO DAILY 08/15/17 [History] SitaGLIPtin [Januvia] 100 mg PO DAILY 08/15/17 [History] rOPINIRole [Requip] 2 mg PO BEDTIME 08/15/17 [History] Acetaminophen [Tylenol Extra Strength] 500 mg PO QID PRN #0 08/19/17 [Rx] Acetaminophen/oxyCODONE [Percocet 325-5 MG] 1 - 2 tab PO Q6H PRN #60 tablet 08/03 [Rx] Aspirin [Ecotrin] 325 mg PO BID #84 tab.ec 08/19/17 [Rx] Bisacodyl [Dulcolax] 5 mg PO DAILY PRN tablet 08/19/17 [Rx] Docusate Sodium [Colace] 100 mg PO BID cap 08/19/17 [Rx] Magnesium Hydroxide [Milk of Magnesia] 30 ml PO BID PRN cup 08/19/17 [Rx] Ondansetron [Zofran ODT] 4 mg PO Q6H PRN #20 tab.dis 08/19/17 [Rx] Sennosides [Senna] 8.6 mg PO BID PRN tablet 08/19/17 [Rx] Patient Handouts: Total Knee Replacement, Care After Referrals: Ayala Sorto PA-C [Physician Referral Coordinator] - (Please follow-up with Dr. Yen/ Raquel Sorto at your previously scheduled appointments on FridayAugust 26 at 1130am. The next scheduled appointment is on FridaySeptember 02 at 1130 am. ) - Patient Data Vitals - Most Recent: Last Vital Signs Temp 99.0 F 08/19/17 11:40 Pulse 89 08/19/17 11:40 Resp 22 H 08/19/17 11:40 BP 133/56 L 08/19/17 11:40 Pulse Ox 92 L 08/19/17 11:40 Weight - Most Recent: 152 lb Med Orders - Current: Current Medications Discontinued Medications Acetaminophen (Ofirmev) 1,000 mg IV ASDIRECTED [facility] Stop: 08/19/17 07:06 Last Admin: 08/18/17 08:08 Dose: 1,000 mg Aspirin (Ecotrin) 325 mg PO BID [facility] Last Admin: 08/19/17 09:57 Dose: 325 mg Bisacodyl (Dulcolax) 5 mg PO DAILY PRN PRN Reason: Constipation Bupivacaine HCl (Marcaine 0.25%) Confirm Administered Dose 30 ml .ROUTE .STK- MED ONE Stop: 08/18/17 07:07 Last Admin: 08/18/17 10:58 Dose: 30 ml Bupivacaine HCl/Dextrose (Marcaine 0.75% Spinal) Confirm Administered Dose 2 ml .ROUTE .STK-MED ONE Stop: 08/18/17 07:26 Cefazolin Sodium (Ancef) Confirm Administered Dose 2 gm .ROUTE .[facility]-MED ONE Stop: 08/18/17 07:07 Last Admin: 08/18/17 10:41 Dose: 2 gm Cefazolin Sodium (Ancef) Confirm Administered Dose 2 gm .ROUTE .[facility] ONE Stop: 08/18/17 07:38 Cholecalciferol (Vitamin D3) 2,000 units PO DAILY [facility] Last Admin: 08/19/17 09:57 Dose: 2,000 units Morphine Sulfate 8 mg/Epinephrine HCl 0.3 mg/Cefuroxime Sodium 750 mg/Ketorolac Tromethamine 30 mg/Sodium Chloride 27.9 ml 0 mg .XX ONETIME ONE Stop: 08/18/17 09:01 Last Admin: 08/18/17 15:21 Dose: Not Given Denosumab (Prolia) mg .XX ASDIRECTED [facility] Diphenhydramine HCl (Benadryl) 25 mg IVPUSH Q6H PRN PRN Reason: pruritis Stop: 08/18/17 12:00 Docusate Sodium (Colace) 100 mg PO BID [facility] Last Admin: 08/19/17 10:05 Dose: Not Given Ephedrine Sulfate (Ephedrine Sulfate) 5 mg IVPUSH ASDIRECTED PRN PRN Reason: Hypotension Stop: 08/18/17 12:00 Epinephrine HCl (Adrenalin) Confirm Administered Dose 1 mg .ROUTE .[facility]-MED ONE Stop: 08/18/17 06:40 Famotidine (Pepcid) 20 mg PO Q12H [facility] Famotidine (Pepcid) 20 mg PO BID [facility] Last Admin: 08/19/17 10:54 Dose: Not Given Fentanyl (Sublimaze) Confirm Administered Dose 100 mcg .ROUTE .[facility]-MED ONE Stop: 08/18/17 07:38 Fentanyl (Sublimaze) 50 mcg IVPUSH Q5M PRN PRN Reason: Pain Stop: 08/18/17 12:00 Glimepiride (Amaryl) 2 mg PO ONETIME ONE Stop: 08/19/17 18:20 Lactated Ringer's (Ringers, Lactated) 1,000 mls @ 125 mls/hr IV ASDIRECTED [facility] Last Admin: 08/18/17 07:25 Dose: 125 mls/hr Cefazolin Sodium/Dextrose 2 gm (/ Premix) 50 mls @ 100 mls/hr IV Q8H [facility] Stop: 08/19/17 07:59 Last Admin: 08/19/17 06:41 Dose: 100 mls/hr Lidocaine HCl (Xylocaine-Mpf 1%) Confirm Administered Dose 12 mls @ as directed .ROUTE .STK-MED ONE Stop: 08/18/17 07:38 Lactated Ringer's (Ringers, Lactated) Confirm Administered Dose 1,000 mls @ as directed .ROUTE .STK-MED ONE Stop: 08/18/17 07:38 Lidocaine HCl (Xylocaine-Mpf 1%) Confirm Administered Dose 2 mls @ as directed .ROUTE .STK-MED ONE Stop: 08/18/17 10:01 Phenylephrine HCl 1 mg/ Sodium (Chloride) 10.1 mls @ 1 mls/sec IV TITRATE [facility]; Protocol Stop: 08/18/17 12:00 Iodine (Iodine 2% Mild Tincture) Confirm Administered Dose 30 ml .ROUTE .STK- MED ONE Stop: 08/18/17 07:07 Last Admin: 08/18/17 10:51 Dose: 18 ml Ketamine HCl (Ketalar) Confirm Administered Dose 500 mg .ROUTE .STK-MED ONE Stop: 08/18/17 07:38 Ketorolac Tromethamine (Toradol) 15 mg IVPUSH Q6H PRN PRN Reason: Pain Last Admin: 08/18/17 18:36 Dose: 15 mg Lidocaine/Sodium Bicarbonate (Buffered Lidocaine 1% In Ns 8.4%) 0.25 ml IDERM ONETIME PRN PRN Reason: Prior to IV Start Stop: 08/18/17 18:00 Last Admin: 08/18/17 07:25 Dose: 0.25 ml Lorazepam (Ativan) 0.5 mg PO DAILY [facility] Last Admin: 08/19/17 09:57 Dose: 0.5 mg Magnesium Hydroxide (Milk Of Magnesia) 30 ml PO BID PRN PRN Reason: Constipation Metoclopramide HCl (Reglan) 10 mg IVPUSH Q6H PRN PRN Reason: Nausea/Vomiting Last Admin: 08/18/17 17:52 Dose: 10 mg Midazolam HCl (Versed 1 Mg/Ml) Confirm Administered Dose 2 mg .ROUTE .STK-MED ONE Stop: 08/18/17 07:38 Morphine Sulfate (Morphine) 2 mg IVPUSH Q2H PRN PRN Reason: Breakthrough Pain Morphine Sulfate (Duramorph Pf) Confirm Administered Dose 10 mg .ROUTE .[facility]-MED ONE Stop: 08/18/17 07:26 Multivitamins (Thera) 1 each PO DAILY [facility] Last Admin: 08/19/17 09:57 Dose: 1 each Naloxone HCl (Narcan) 0.1 mg IVPUSH Q5M PRN PRN Reason: Oversedation Glimepiride 1mg Pt (Own) 2 each PO WITHBREAKFAST [facility] Last Admin: 08/19/17 06:15 Dose: 1 each Ondansetron HCl (Zofran) 4 mg IVPUSH Q6H PRN PRN Reason: Nausea/Vomiting Last Admin: 08/19/17 11:18 Dose: 4 mg Ondansetron HCl (Zofran) Confirm Administered Dose 4 mg .ROUTE .[facility]-MED ONE Stop: 08/18/17 07:38 Ondansetron HCl (Zofran) 4 mg IVPUSH ONETIME PRN PRN Reason: Nausea/Vomiting Stop: 08/18/17 12:00 Oxycodone HCl (Oxycontin) 10 mg PO ONETIME [facility] Last Admin: 08/18/17 08:08 Dose: 10 mg Oxycodone/Acetaminophen (Percocet 325-5 Mg) 1 - 2 tab PO Q4H PRN PRN Reason: Pain Oxycodone/Acetaminophen (Percocet 325-5 Mg) 1 - 2 tab PO Q4H PRN PRN Reason: Pain Last Admin: 08/19/17 11:21 Dose: 2 tab Pantoprazole Sodium (Protonix) 40 mg PO DAILY@0700 [facility] Last Admin: 08/19/17 06:13 Dose: 40 mg Eluxadoline [Viberzi (] TabsPt Own) 1 - 2 each PO DAILY [facility] Last Admin: 08/19/17 10:00 Dose: 1 each Phenylephrine HCl (Stewart-Synephrine) Confirm Administered Dose 10 mg .ROUTE .STK- MED ONE Stop: 08/18/17 07:43 Potassium Chloride (Klor-Con 10) 10 meq PO BID [facility] Last Admin: 08/19/17 09:58 Dose: 10 meq Pregabalin (Lyrica) 50 mg PO DAILY [facility] Last Admin: 08/18/17 15:23 Dose: Not Given Propofol (Diprivan 20 Ml) Confirm Administered Dose 400 mg .ROUTE .STK-MED ONE Stop: 08/18/17 07:38 Ropinirole HCl (Requip) 2 mg PO BEDTIME [facility] Last Admin: 08/18/17 21:17 Dose: 2 mg Ropinirole HCl (Requip) 1 mg PO BID@0700,1500 [facility] Last Admin: 08/19/17 15:06 Dose: 1 mg Ropivacaine (Naropin 0.5%) Confirm Administered Dose 30 ml .ROUTE .STK-MED ONE Stop: 08/18/17 06:40 Scopolamine (Transderm-Scop) 1.5 mg TRDERM Q72H PRN PRN Reason: dizziness Last Admin: 08/18/17 14:52 Dose: 1.5 mg Senna (Senna) 8.6 mg PO BID PRN PRN Reason: Constipation Simvastatin (Zocor) 20 mg PO DAILY [facility] Last Admin: 08/19/17 09:58 Dose: 20 mg Sodium Chloride (Saline Flush) 10 ml FLUSH ASDIRECTED PRN PRN Reason: Keep Vein Open Tranexamic Acid (Cyklokapron) Confirm Administered Dose 1,000 mg .ROUTE .STK- MED ONE Stop: 08/18/17 07:07 Last Admin: 08/18/17 10:53 Dose: 1,000 mg Triamterene/HCTZ (Dyazide 25-37.5 Mg) 1 each PO DAILY [facility] Last Admin: 08/19/17 09:58 Dose: 1 each Vancomycin HCl (Vancomycin) Confirm Administered Dose 1 gm .ROUTE .STK-MED ONE Stop: 08/18/17 07:07 Last Admin: 08/18/17 11:01 Dose: 1 gm
== END 2017-08-19 17:45 | disposition home or self-care (01) ==
LOC: JD.MS 07:02 → UNDOADMIN 07:02 → JD.SDS 07:02 → EDSTATUS 11:30 → JD.MS 11:49 → UNDODISIN 08-19 17:45 → JD.SDS 08-19 17:45
PROVIDERS: ATTEND Orthopaedic Surgery
DX: M17.11 Unilateral primary osteoarthritis, right knee (principal); E78.5 Hyperlipidemia, unspecified; I10 Essential (primary) hypertension; K21.9 Gastro-esophageal reflux disease without esophagitis; Z79.84 Long term (current) use of oral hypoglycemic drugs; Z79.899 Other long term (current) drug therapy
CPT/HCPCS: 27447; 36415; 64450; 73560; 80053; 82962; 85027; 85610; 85730; 87641; 94762; 97110; 97116; 97161; 97165; 97535; A9270; C1713; C1776; J0171; J0690; J0697; J1885; J2001; J2250; J2270; J2370; J2405; J2765; J2795; J3010; J3370; J3490; J7120; 01402; 99231; J2704

== ENCOUNTER 2021-06-07 20:57 | Observation (INO) | payer MEDICARE, OTHER ==
[2021-06-07] MEDS ORDERED: Sodium Chloride 0.9% 100 ML IV SCH (23:45)
[2021-06-07] MEDS ORDERED: Sodium Chloride 0.9% 10 ML SDV FLUSH ONE (23:52)
[2021-06-07] MEDS ORDERED: Iopamidol 755 Mg/ML 100 ML Bottle IVPUSH ONE (23:52)
[2021-06-08] MEDS ORDERED: Aspirin 81 MG Tab.Chew PO ONE (06:41)
[2021-06-08] MEDS ORDERED: Magnesium Sulfate/Water 2 GM in Premix Bag 1 BAG IV ONE (07:48)
[2021-06-08] MEDS ORDERED: Acetaminophen 325 MG Tab PO PRN (07:51)
[2021-06-08] MEDS ORDERED: oxyCODONE 5 MG Tab PO PRN (07:51)
[2021-06-08] MEDS ORDERED: Ondansetron 4 MG/2 ML SDV IV PRN (07:51)
[2021-06-08 08:37] LABS: HEMOGLOBIN A1C 7.9 %
[2021-06-08] MEDS: Aspirin 81 MG Tab.Chew PO SCH (09:45)
[2021-06-08] MEDS: Enoxaparin 30 MG/0.3 ML Syringe SUBCUT SCH (09:46)
[2021-06-08] MEDS: Insulin Lispro 100 Unit/ML 3 ML KwikPen SUBCUT SCH ×3 (13:20→21:09)
[2021-06-08] MEDS: PRAMIPEXOLE 0.5 MG PO SCH ×2 (16:16→21:09)
[2021-06-08] MEDS: Calcium Carbonate 500 MG Tab.Chew PO SCH (16:16)
[2021-06-08] MEDS: Rosuvastatin 10 MG Tab PO SCH (16:16)
[2021-06-08] MEDS: AMITRIPTYLINE 10 MG PO SCH (16:16)
[2021-06-08] MEDS: LISINOPRIL 10 MG PO SCH (16:17)
[2021-06-08] MEDS: Omeprazole 20 MG Cap.CR ** PATIENT'S OWN MED PO SCH (16:17)
[2021-06-08] MEDS: DULOXETINE 60 MG PO SCH (16:17)
[2021-06-08] MEDS ORDERED: ELUXADOLINE 75 MG PO SCH (21:00)
[2021-06-08] MEDS: ELUXADOLINE 75 MG PO SCH (21:09)
[2021-06-09] MEDS: Insulin Lispro 100 Unit/ML 3 ML KwikPen SUBCUT SCH ×4 (07:04→21:29)
[2021-06-09] MEDS: Enoxaparin 30 MG/0.3 ML Syringe SUBCUT SCH (08:43)
[2021-06-09] MEDS: PRAMIPEXOLE 0.5 MG PO SCH (08:46)
[2021-06-09] MEDS: AMITRIPTYLINE 10 MG PO SCH (08:46)
[2021-06-09] MEDS: Omeprazole 20 MG Cap.CR ** PATIENT'S OWN MED PO SCH (08:47)
[2021-06-09] MEDS: LISINOPRIL 10 MG PO SCH (08:48)
[2021-06-09] MEDS: DULOXETINE 60 MG PO SCH (08:49)
[2021-06-09] MEDS: ELUXADOLINE 75 MG PO SCH (08:49)
[2021-06-09] MEDS: Aspirin 81 MG Tab.Chew PO SCH (08:50)
[2021-06-09] MEDS: Rosuvastatin 10 MG Tab PO SCH (08:50)
[2021-06-09] MEDS: Calcium Carbonate 500 MG Tab.Chew PO SCH (08:50)
[2021-06-09] MEDS: Pramipexole 0.5 MG Tab PO SCH ×2 (15:30→20:39)
[2021-06-10] MEDS ORDERED: Glimepiride 2 MG Tab PO SCH (08:00)
[2021-06-10] MEDS: Insulin Lispro 100 Unit/ML 3 ML KwikPen SUBCUT SCH ×2 (08:33→11:26)
[2021-06-10] MEDS: Calcium Carbonate 500 MG Tab.Chew PO SCH (08:57)
[2021-06-10] MEDS: Rosuvastatin 10 MG Tab PO SCH (08:58)
[2021-06-10] MEDS: Pramipexole 0.5 MG Tab PO SCH (08:58)
[2021-06-10] MEDS: Aspirin 81 MG Tab.Chew PO SCH (08:58)
[2021-06-10] MEDS: Enoxaparin 30 MG/0.3 ML Syringe SUBCUT SCH (09:00)
[2021-06-10] MEDS: AMITRIPTYLINE 10 MG PO SCH (09:02)
[2021-06-10] MEDS: ELUXADOLINE 75 MG PO SCH (09:02)
[2021-06-10] MEDS: LISINOPRIL 10 MG PO SCH (09:03)
[2021-06-10] MEDS: DULOXETINE 60 MG PO SCH (09:04)
[2021-06-10] MEDS: Omeprazole 20 MG Cap.CR ** PATIENT'S OWN MED PO SCH (09:26)
[2021-06-10 13:28] VITALS: BP 127/35; PULSE 101
== END 2021-06-10 14:25 | disposition home or self-care (01) ==
LOC: JD.ED 20:57 → JD.MS 06-08 06:52 → JD.OB 06-09 19:40
PROVIDERS: ADMIT Family Medicine; ATTEND Family Medicine
DX: I63.9 Cerebral infarction, unspecified (principal); I67.1 Cerebral aneurysm, nonruptured; I66.9 Occlusion and stenosis of unspecified cerebral artery; E78.5 Hyperlipidemia, unspecified; K21.9 Gastro-esophageal reflux disease without esophagitis; E78.00 Pure hypercholesterolemia, unspecified; G47.00 Insomnia, unspecified; G25.81 Restless legs syndrome; R32 Unspecified urinary incontinence; E83.42 Hypomagnesemia; N18.32 Chronic kidney disease, stage 3b; I12.9 Hypertensive chronic kidney disease with stage 1 through stage 4 chronic kidney disease, or unspecified chronic kidney disease; E11.22 Type 2 diabetes mellitus with diabetic chronic kidney disease; Z98.890 Other specified postprocedural states; Z20.822 Contact with and (suspected) exposure to COVID-19; Z79.899 Other long term (current) drug therapy
CPT/HCPCS: 36415; 70450; 70496; 70498; 70551; 80048; 80053; 80061; 81001; 82947; 83036; 83735; 84484; 85025; 85610; 85730; 86140; 93005; 96365; 96366; 96372; 97161; 99285; A9270; G0378; J1650; J1815; J3475; Q9967; U0002

== ENCOUNTER 2021-08-16 15:18 | Inpatient (IN) | payer MEDICARE, OTHER ==
[2021-08-16] MEDS ORDERED: Sodium Chloride 0.9% 10 ML Syringe FLUSH PRN (15:48)
[2021-08-16] MEDS ORDERED: Sodium Chloride 0.9% 1,000 ML IV ONE (17:26)
[2021-08-16] MEDS ORDERED: Bisacodyl 5 MG Tab PO PRN (18:51)
[2021-08-16] MEDS ORDERED: Docusate Sodium 100 MG Cap PO PRN (18:57)
[2021-08-16] MEDS ORDERED: Ondansetron 4 MG Tab.DIS PO PRN (18:57)
[2021-08-16] MEDS ORDERED: Sodium Chloride 0.9% 1,000 ML IV SCH (19:00)
[2021-08-16] MEDS: Heparin Sodium 5,000 Units/ML Vial SUBCUT SCH (21:55)
[2021-08-17] MEDS: Heparin Sodium 5,000 Units/ML Vial SUBCUT SCH ×3 (05:49→20:45)
[2021-08-17] MEDS: Dextrose 5%-0.45% NaCl 1,000 ML IV SCH ×2 (07:57→16:56)
[2021-08-17] MEDS ORDERED: Glimepiride 2 MG Tab PO SCH (09:00)
[2021-08-17] MEDS: Famotidine 10 MG Tab PO SCH (09:00)
[2021-08-17] MEDS: Pramipexole 0.5 MG Tab PO SCH (09:00)
[2021-08-17] MEDS: Amitriptyline 10 MG Tab PO SCH (09:00)
[2021-08-17] MEDS: DULoxetine 30 MG Cap PO SCH (09:00)
[2021-08-17] MEDS: Clopidogrel 75 MG Tab PO SCH (09:01)
[2021-08-17] MEDS: Insulin Regular, Human 100 Units/ML 3 ML Vial SUBCUT SCH ×3 (09:01→18:08)
[2021-08-17] MEDS: Lisinopril 10 MG Tab PO SCH (10:26)
[2021-08-17] MEDS: Acetaminophen 325 MG Tab PO PRN (14:00)
[2021-08-17] MEDS: ELUXADOLINE 75 MG PO SCH (14:51)
[2021-08-17] MEDS ORDERED: 50% Dextrose in Water 50 ML Syringe IVPUSH ONE (15:21)
[2021-08-17] MEDS ORDERED: 50% Dextrose in Water 50 ML Syringe ONE ×2 (15:22→18:20)
[2021-08-17] MEDS ORDERED: 50% Dextrose in Water 50 ML Syringe IVPUSH PRN (18:16)
[2021-08-17] MEDS ORDERED: Dextrose 10% in Water 1,000 ML IV SCH (18:30)
[2021-08-17] MEDS: Dextrose 10% in Water 1,000 ML IV SCH (18:37)
[2021-08-17] MEDS ORDERED: Hyaluronidase, Human Recombinant 150 Units/1 ML SDV SUBCUT ONE (18:39)
[2021-08-18] MEDS: Heparin Sodium 5,000 Units/ML Vial SUBCUT SCH ×3 (04:17→20:27)
[2021-08-18] MEDS: Dextrose 10% in Water 1,000 ML IV SCH (05:30)
[2021-08-18] MEDS ORDERED: Potassium Bicarbonate/Cit Ac 20 MEQ Effervescent Tab PO ONE (06:52)
[2021-08-18] MEDS: Insulin Regular, Human 100 Units/ML 3 ML Vial SUBCUT SCH ×3 (08:53→18:09)
[2021-08-18] MEDS: DULoxetine 30 MG Cap PO SCH (08:53)
[2021-08-18] MEDS: Famotidine 10 MG Tab PO SCH (08:54)
[2021-08-18] MEDS: Pramipexole 0.5 MG Tab PO SCH (08:54)
[2021-08-18] MEDS: Amitriptyline 10 MG Tab PO SCH (08:54)
[2021-08-18] MEDS: Clopidogrel 75 MG Tab PO SCH (08:54)
[2021-08-18] MEDS: Lisinopril 10 MG Tab PO SCH (08:58)
[2021-08-18] MEDS: ELUXADOLINE 75 MG PO SCH (09:13)
[2021-08-18] MEDS ORDERED: Furosemide 20 MG/2 ML VIAL IVPUSH ONE (10:34)
[2021-08-18] MEDS ORDERED: Dextrose 10% in Water 1,000 ML IV SCH (10:45)
[2021-08-19] MEDS: Heparin Sodium 5,000 Units/ML Vial SUBCUT SCH ×3 (05:25→20:31)
[2021-08-19] MEDS: Famotidine 10 MG Tab PO SCH (08:07)
[2021-08-19] MEDS: Amitriptyline 10 MG Tab PO SCH (08:07)
[2021-08-19] MEDS: Lisinopril 10 MG Tab PO SCH (08:07)
[2021-08-19] MEDS: Pramipexole 0.5 MG Tab PO SCH (08:07)
[2021-08-19] MEDS: Clopidogrel 75 MG Tab PO SCH (08:07)
[2021-08-19] MEDS: DULoxetine 30 MG Cap PO SCH (08:07)
[2021-08-19] MEDS: Insulin Regular, Human 100 Units/ML 3 ML Vial SUBCUT SCH ×3 (08:08→18:34)
[2021-08-19] MEDS: ELUXADOLINE 75 MG PO SCH (08:10)
[2021-08-19] MEDS: Acetaminophen 325 MG Tab PO PRN (09:17)
[2021-08-19] MEDS ORDERED: Potassium Bicarbonate/Cit Ac 20 MEQ Effervescent Tab PO ONE (09:44)
[2021-08-20] MEDS: Heparin Sodium 5,000 Units/ML Vial SUBCUT SCH ×3 (04:45→22:11)
[2021-08-20] MEDS: Acetaminophen 325 MG Tab PO PRN ×2 (06:21→22:59)
[2021-08-20 07:29] LABS: HEMOGLOBIN A1C 7.6 %
[2021-08-20] MEDS: Famotidine 10 MG Tab PO SCH (08:02)
[2021-08-20] MEDS: ELUXADOLINE 75 MG PO SCH (08:02)
[2021-08-20] MEDS: Pramipexole 0.5 MG Tab PO SCH (08:02)
[2021-08-20] MEDS: DULoxetine 30 MG Cap PO SCH (08:02)
[2021-08-20] MEDS: Amitriptyline 10 MG Tab PO SCH (08:03)
[2021-08-20] MEDS: Clopidogrel 75 MG Tab PO SCH (08:03)
[2021-08-20] MEDS ORDERED: Potassium Chloride 20 MEQ Tab.ER PO ONE (09:24)
[2021-08-20] MEDS: Lisinopril 10 MG Tab PO SCH (09:31)
[2021-08-20] MEDS: Empagliflozin 10 MG Tab PO SCH (09:31)
[2021-08-20] MEDS: Insulin Regular, Human 100 Units/ML 3 ML Vial SUBCUT SCH ×3 (09:31→19:35)
[2021-08-21] MEDS: Heparin Sodium 5,000 Units/ML Vial SUBCUT SCH ×2 (04:26→12:25)
[2021-08-21] MEDS ORDERED: Sodium Chloride 0.9% 1,000 ML IV SCH (09:15)
[2021-08-21] MEDS ORDERED: Potassium Chloride 20 MEQ Tab.ER PO SCH (09:15)
[2021-08-21] MEDS: DULoxetine 30 MG Cap PO SCH (09:16)
[2021-08-21] MEDS: Pramipexole 0.5 MG Tab PO SCH (09:16)
[2021-08-21] MEDS: Amitriptyline 10 MG Tab PO SCH (09:16)
[2021-08-21] MEDS: Lisinopril 10 MG Tab PO SCH (09:16)
[2021-08-21] MEDS: Clopidogrel 75 MG Tab PO SCH (09:16)
[2021-08-21] MEDS: Empagliflozin 10 MG Tab PO SCH (09:17)
[2021-08-21] MEDS: Famotidine 10 MG Tab PO SCH (09:17)
[2021-08-21] MEDS: ELUXADOLINE 75 MG PO SCH (09:17)
[2021-08-21] MEDS: Insulin Regular, Human 100 Units/ML 3 ML Vial SUBCUT SCH ×2 (09:18→12:30)
[2021-08-21] MEDS ORDERED: Potassium Chloride 10 MEQ in Premix Bag 1 BAG IV SCH (09:30)
[2021-08-21 10:44] VITALS: PULSE 88
[2021-08-21 11:28] VITALS: BP 109/94
[2021-08-21] MEDS ORDERED: Potassium Bicarbonate/Cit Ac 20 MEQ Effervescent Tab PO ONE (13:30)
== END 2021-08-21 13:36 | DRG 947 ==
LOC: SUPCPDRO 15:18 → JD.ED 15:18 → JD.MS 18:58 → OBSVTOIN 08-18 08:45
PROVIDERS: ADMIT Internal Medicine; ATTEND Internal Medicine
DX: R41.0 Disorientation, unspecified (principal); N28.9 Disorder of kidney and ureter, unspecified; R41.82 Altered mental status, unspecified; G92.8 Other toxic encephalopathy; I13.0 Hypertensive heart and chronic kidney disease with heart failure and stage 1 through stage 4 chronic kidney disease, or unspecified chronic kidney disease; E11.649 Type 2 diabetes mellitus with hypoglycemia without coma; I10 Essential (primary) hypertension; T38.3X5A Adverse effect of insulin and oral hypoglycemic [antidiabetic] drugs, initial encounter; E86.0 Dehydration; E11.22 Type 2 diabetes mellitus with diabetic chronic kidney disease; N18.32 Chronic kidney disease, stage 3b; R26.9 Unspecified abnormalities of gait and mobility; M51.9 Unspecified thoracic, thoracolumbar and lumbosacral intervertebral disc disorder; Z20.822 Contact with and (suspected) exposure to COVID-19; E11.9 Type 2 diabetes mellitus without complications; M77.30 Calcaneal spur, unspecified foot; I50.9 Heart failure, unspecified; E78.00 Pure hypercholesterolemia, unspecified; K57.90 Diverticulosis of intestine, part unspecified, without perforation or abscess without bleeding; K21.9 Gastro-esophageal reflux disease without esophagitis; K58.9 Irritable bowel syndrome, unspecified; F45.8 Other somatoform disorders; R32 Unspecified urinary incontinence; R35.0 Frequency of micturition; G25.81 Restless legs syndrome; G47.10 Hypersomnia, unspecified; F17.200 Nicotine dependence, unspecified, uncomplicated; Z96.651 Presence of right artificial knee joint; Z96.611 Presence of right artificial shoulder joint; Z86.73 Personal history of transient ischemic attack (TIA), and cerebral infarction without residual deficits; Z79.899 Other long term (current) drug therapy; Z98.49 Cataract extraction status, unspecified eye; Z97.3 Presence of spectacles and contact lenses; Z79.84 Long term (current) use of oral hypoglycemic drugs; Z79.02 Long term (current) use of antithrombotics/antiplatelets
CPT/HCPCS: 36415 ×3; 70450; 71045; 80053 ×3; 80306; 81001; 82947 ×13; 83605; 83735 ×2; 84484; 85025 ×3; 85379; 85610; 85730; 86140; 87641; 93005; 97116; 97161; 99285; A9270 ×8; J1644 ×5; J1815; J3470; J7030 ×2; J7042 ×4; U0002; 70551; 70551-26; 73630-26-RT; 73630-RT; 80048; 83036; 93010; 96372; 96374; 97530-GP; 99219; 99232; 99239; 99284; G0378; J1940; J3480; J3490

== ENCOUNTER 2022-01-07 17:57 | Emergency (ER) | payer MEDICARE, OTHER ==
[2022-01-07 18:11] VITALS: BP 118/60; PULSE 98
[2022-01-07] MEDS ORDERED: Nitrofurantoin Monohydrate/Macrocrystalline 100 MG Cap PO STA (20:52)
== END 2022-01-07 21:30 | disposition home or self-care (01) ==
LOC: JD.ED 17:57
DX: N39.0 Urinary tract infection, site not specified (principal); E11.9 Type 2 diabetes mellitus without complications; Z79.899 Other long term (current) drug therapy; Z79.84 Long term (current) use of oral hypoglycemic drugs; Z20.822 Contact with and (suspected) exposure to COVID-19
CPT/HCPCS: 36415; 70450; 73110; 80053; 81001; 83605; 84484; 85025; 85610; 85730; 87040; 87086; 93005; 99285; A9270; U0002; 87088; 87186; 93010; 99284

== ENCOUNTER 2023-11-22 12:39 | Emergency (ER) | payer MEDICARE, BC ==
[2023-11-22] MEDS: Cyclobenzaprine 10 MG Tab PO ONE (13:45)
[2023-11-22 20:30] VITALS: BP 125/68; PULSE 87
== END 2023-11-22 14:58 | disposition home or self-care (01) ==
LOC: JD.ED 12:39
DX: M51.36 Other intervertebral disc degeneration, lumbar region (principal); E78.00 Pure hypercholesterolemia, unspecified; I10 Essential (primary) hypertension; K21.9 Gastro-esophageal reflux disease without esophagitis; E11.9 Type 2 diabetes mellitus without complications; Z79.899 Other long term (current) drug therapy; Z79.02 Long term (current) use of antithrombotics/antiplatelets; Z79.84 Long term (current) use of oral hypoglycemic drugs; Z86.73 Personal history of transient ischemic attack (TIA), and cerebral infarction without residual deficits
CPT/HCPCS: 72100; 99283; A9270